=== PATIENT | female | born 1940 | race Caucasian/White ===

== ENCOUNTER → 2018-01-31 01:21 | Outpatient (CLI) | payer MEDICARE, BC, SELFPAY ==
--- NOTE | 2018-01-31 14:00 | DI.REPORT_ITS ---
SYMPTOMS/DIAGNOSIS: F/U ABNORMAL MAMMO, SMALL AREA OF NODULARITY IN POSTERIOR MEDIAL LEFT BREAST ADDITIONAL VIEWS OF THE LEFT BREAST AND LEFT BREAST ULTRASOUND: Additional views of the left breast fail to show a persistent discrete mass. Breast density C. A left breast ultrasound was performed. The upper outer and lower outer quadrants were evaluated sonographically. No cystic or solid masses are seen sonographically. IMPRESSION: No evidence for malignancy. Yearly mammography is recommended. Category 1. The findings were discussed with the patient on the date of the examination. [facility] ASSESSMENT OF FINDINGS: Negative. Category 1. Patient will receive a letter notifying them of these results. Bi-RADS category C. The breasts are heterogeneously dense, which may obscure small masses.
== END ==
PROVIDERS: PCP Family Medicine; Visit Provider Family Medicine
DX: Z12.31 Encounter for screening mammogram for malignant neoplasm of breast (principal); R92.8 Other abnormal and inconclusive findings on diagnostic imaging of breast
CPT/HCPCS: 76642; 77063; 77067

== ENCOUNTER 2018-10-10 11:41 | Outpatient (REF) | payer MEDICARE, BC, SELFPAY ==
[2018-10-10 19:38] LABS: HCT 38.6 % (36.0-46.0); HGB 12.8 g/dL (12.0-15.5); Mean Corp. HGB Concentration 33.2 g/dL (32.0-36.0); Mean Corpuscular Volume 93.5 fL (80-95); Mean Platelet Volume 11.4 fL (8.0-11.0); Platelet Count 225 x1000/uL (130-400); RBC 4.13 m/cumm (4.00-5.20)
[2018-10-10 20:49] LABS: Ferritin 57 ng/mL (8-388)
== END 2018-10-10 12:01 ==
LOC: NCHCN 11:41
PROVIDERS: PCP Family Medicine; Visit Provider Family Medicine
DX: K62.5 Hemorrhage of anus and rectum (principal)
CPT/HCPCS: 85027; 82728

== ENCOUNTER 2018-10-11 10:39 | Outpatient (REF) | payer MEDICARE, BC, SELFPAY ==
[2018-10-12 12:00] LABS: Campylobacter PCR SEE COMMENTS; Salmonella PCR SEE COMMENTS; Shiga Toxin PCR SEE COMMENTS; Shigella/Enteroinvasive Ecoli SEE COMMENTS
== END 2018-10-11 10:59 ==
LOC: NCHCN 10:39
PROVIDERS: PCP Family Medicine; Visit Provider Family Medicine
DX: K92.1 Melena (principal)
CPT/HCPCS: 87329; 87505; 83630; 87324

== ENCOUNTER → 2018-12-15 10:49 | Outpatient (BNVA) | payer MEDICARE, BC, SELFPAY | PROVIDERS: PCP Family Medicine; Referring Provider Family Medicine; Visit Provider Physical Therapy Assistant | DX: K62.5 Hemorrhage of anus and rectum (principal) | CPT/HCPCS: 99213 ==

== ENCOUNTER 2019-04-17 00:41 | Outpatient (CLI) | payer MEDICARE, BC, SELFPAY ==
--- NOTE | 2019-04-17 10:20 | DI.MAMMO_ITS ---
EXAM: MG MAMMO SCREENING CLINICAL HISTORY: SCREENING Z12.31. TECHNIQUE: Mammograms were interpreted according to the usual protocol including computer analysis w [employer] CAD system, tomosynthesis and C-view imaging. FINDINGS: The breast tissue is heterogeneously radiodense which lowers the sensitivity of the examination. The re is no evidence of a dominant mass. There are no suspicious calcifications. There has been no sign ificant interval change when compared with prior images. IMPRESSION: No evidence of malignancy, category 1, yearly screening mammography is recommended. Breast density, c ategory C. BI-RADS Cat 1 - Negative. Breast Density - Category C - Heterogeneously dense.
== END 2019-04-17 01:01 ==
PROVIDERS: PCP Family Medicine; Visit Provider Family Medicine
DX: Z12.31 Encounter for screening mammogram for malignant neoplasm of breast (principal)
CPT/HCPCS: 77063; 77067

== ENCOUNTER 2019-05-19 09:50 | Outpatient (REF) | payer MEDICARE, BC, SELFPAY ==
[2019-05-19 12:55] LABS: ALT 21 U/L (14-59); AST 21 U/L (15-37); Albumin 4.2 g/dL (3.4-5.0); Alkaline Phosphatase 79 U/L (46-116); Anion Gap 8.6 mmol/L (3-11); BUN 14 mg/dL (7-18); Bilirubin, Total 0.4 mg/dL (0.2-1.0); CO2 29.4 mmol/L (21.0-32.0); CREATININE 0.68 mg/dL (0.55-1.02); Calcium 9.3 mg/dL (8.5-10.1); Chloride 104 mmol/L (98-107); Glucose 87 mg/dL (74-106); Lipase 165 U/L (73-393); Potassium 3.8 mmol/L (3.5-5.1); Sodium 142 mmol/L (136-145); Total Protein 7.3 g/dL (6.4-8.2)
== END 2019-05-19 10:10 ==
LOC: NCHCN 09:50
PROVIDERS: PCP Family Medicine; Visit Provider Family Medicine
DX: R63.4 Abnormal weight loss (principal); K21.9 Gastro-esophageal reflux disease without esophagitis; R10.13 Epigastric pain
CPT/HCPCS: 80053; 83690

== ENCOUNTER 2019-05-24 01:37 | Outpatient (CLI) | payer MEDICARE, BC, SELFPAY ==
[2019-05-24] MEDS: Omnipaque 350 MG/ML 50 ML BTL IJ (08:53)
[2019-05-24] MEDS: Omnipaque 350 MG/ML 100 ML BTL IJ (09:37)
[2019-05-24] MEDS: Normal Saline - Diluent 50 ML VIAL IV (09:38)
--- NOTE | 2019-05-24 09:50 | DI.CT_ITS ---
EXAM: CT ABDOMEN W CLINICAL HISTORY: EPIGASTRIC ABDOMINAL PAIN, R10.13, RECENT WEIGHT LOSS, R63.4 TECHNIQUE: CT examination of the abdomen was performed with bolus infusion 100 cc of Omnipaque 350. COMPARISON: No exams were available for comparison FINDINGS: Images obtained through the lung bases are unremarkable. There appears to be wall thickening of the distal esophagus and wall thickening of the gastric antrum is noted as well, the possibility of esop hagitis and gastritis is raised. Other etiologies including neoplastic process not excluded on the b asis of this examination. No gross ulceration seen. Duodenum and proximal jejunum are unremarkable in appearance. Liver, spleen and pancreas appear norm al. Gallbladder and bile ducts are CT normal. Adrenals appear normal bilaterally. There is a left renal cyst measuring about 3.8 cm in diameter and a smaller left renal cyst and right renal cyst are also noted. No evidence of hydronephrosis or nephrolithiasis. Abdominal aorta is of normal diameter and no major vascular abnormality is seen. No abdominal wall hernia seen. IMPRESSION: Wall thickening of distal esophagus and gastric antrum, findings are suggestive of esophagitis and ga stritis. Neoplastic process not excluded. Correlation with endoscopy recommended.
== END 2019-05-24 01:57 ==
PROVIDERS: PCP Family Medicine; Visit Provider Family Medicine
DX: R10.13 Epigastric pain (principal); R63.4 Abnormal weight loss; K20.9 Esophagitis, unspecified; K29.70 Gastritis, unspecified, without bleeding
CPT/HCPCS: 74160; J3490; Q9967

== ENCOUNTER → 2019-06-02 10:24 | Outpatient (BNVA) | payer MEDICARE, BC, SELFPAY | PROVIDERS: PCP Family Medicine; Referring Provider Family Medicine; Visit Provider Surgery | DX: R69 Illness, unspecified (principal) ==

== ENCOUNTER 2019-06-02 11:47 | Outpatient (CLI) | payer MEDICARE, BC, SELFPAY ==
--- NOTE | 2019-06-02 11:38 | DI.RAD_ITS ---
EXAM: XR CHEST 2V PA LATERAL INDICATION: SOB, OTHER CHEST PAIN, R07.89. COMPARISON: CT ABDOMEN W from 05/24/2019 TECHNIQUE: 2D digital imaging was performed. FINDINGS: Heart size is within normal limits. There tortuosity of the thoracic aorta. There are several calci fied granuloma noted. The lungs are otherwise clear. No pleural effusions or pneumothoraces are judie ntified. The lungs appear hyperinflated. Age-appropriate degenerative changes are seen in the spine . IMPRESSION: No acute pulmonary process.
[2019-06-02 12:38] LABS: Abs Immature Grans 0.01 k/cumm (0.0-0.09); Absolute Basophil Count 0.03 k/cumm (0.0-0.2); Absolute Eosinophil Count 0.23 k/cumm (0.0-0.7); Absolute Lymphocyte Count 1.71 k/cumm (1.2-3.4); Absolute Monocyte Count 0.52 k/cumm (0.11-0.7); Absolute Neutrophil Count 4.65 k/cumm (1.2-6.7); Basophils % 0.4; Eosinophils % 3.2; HGB 13.3 g/dL (12.0-15.5); Immature Grans % 0.1; Lymphocytes % 23.9; Mean Corp. HGB Concentration 33.3 g/dL (32.0-36.0); Mean Corpuscular Hemoglobin 30.9 pg (27.0-33.0); Mean Platelet Volume 10.2 fL (8.0-11.0); Monocytes % 7.3; Neutrophils % 65.1; Platelet Count 255 x1000/uL (130-400); RBC Distribution Width 12.3 % (11.7-14.6); White Blood Cell Count 7.15 k/cumm (4.4-10.8)
== END 2019-06-02 12:07 ==
PROVIDERS: PCP Family Medicine; Visit Provider Surgery
DX: R07.89 Other chest pain (principal); R06.02 Shortness of breath; J84.10 Pulmonary fibrosis, unspecified; R10.11 Right upper quadrant pain; K21.9 Gastro-esophageal reflux disease without esophagitis; K60.1 Chronic anal fissure
CPT/HCPCS: 36415; 99213; 71046; 85025

== ENCOUNTER 2019-06-05 09:36 | Day surgery (SDC) | payer MEDICARE, BC, SELFPAY ==
[2019-06-05 09:59] VITALS: BP 126/73; PULSE 74; RESP 16; TEMP 36.7; O2SAT 97
[2019-06-05] MEDS: Lactated Ringers 1,000 ML 80 ML IV (11:10)
--- NOTE | 2019-06-05 11:46 | STOM_PTH ---
PATIENT: Lorenzo Dolan LOC: [facility] U#:[id number] AGE/SX: 79/F ROOM: RE06/05/[address]: Lesia Bryant : 1940 BED: DIS: 06/05/2019 SPEC #: [id number] RECD: 06/05/19 13:09 STATUS: [facility] #: [id number] EFRAÍN: 06/05/19 11:[address]: Lesia Bryant DEPT: Surgical Specimen RECD BY: Jovana Sosa ENTERED: 06/05/19 13:11 SP TYPE: STOMACH OTHR DR: Kristie Thomas Tissues: 1 - BIOPSY BOWEL 2 - STOMACH BIOPSY 3 - STOMACH BIOPSY 4 - ESOPHAGUS BIOPSY 5 - ESOPHAGUS BIOPSY Procedures: GROSS AND MICRO LEVEL 4 Comments: [id number]
--- NOTE | 2019-06-05 12:00 | W.PM.DSUDISC ---
Discharge Plan Disposition Patient Disposition: HOME Condition: Good Discharge Details Reason For Visit: GERD Attending Provider: Lesia Ham Primary Care Provider: Kristie Thomas Home Meds and New Rx's Prescriptions: New sucralfate 1 gram tablet 1 gm PO QACHS Qty: 100 RF: 12 Continued albuterol sulfate [ProAir HFA] 8.5 GM HFA aerosol inhaler 1 puff Inhalation Q6H PRN RF: 0 Flovent Diskus 50 mcg/actuation blister with device 50 mcg Inhalation BID PRNRF: 0 pantoprazole 40 mg tablet,delayed release (DR/EC) 40 mg PO DAILY RF: 0 multivitamin 1 EACH capsule 1 ea PO DAILY RF: 0 Discharge Instructions Instructions: Gastroesophageal Reflux Disease (GEN) Additional Instructions: Findings: gastritis. This is a pre-ulcer condition Continue with lifestyle modifications: no alcohol, tobacco products, Aspirin or NSAID's (ibuprofen, Motrin, Naprosyn, aleve, etc). Try to avoid: soda pop/any carbonated beverages, caffeine (including tea & chocolate), and acidic foods, (tomatoes, citrus, onions, peppermints) spicy or fried/fatty foods. Do not lie down for 30 minutes after eating, and do not eat 2 hours prior to bedtime. Avoid wearing tight fitting clothing/ belts continue on Pantoprazole/protonix added carafate. Follow up: 2-3 wks w/ Dr. ham Please call if you develop: fevers >101.5 Nausea or Vomiting Abdominal pain that is not transient DAY SURGERY UNIT POST COLONOSCOPY INSTRUCTIONS 1. Because there will be medication in your system for the next 24 hours, you may feel a little sleepy. Your coordination will be affected. Therefore: a. Do not drive or operate dangerous equipment for 24 hours. b. Do not drink alcohol beverages for 24 hours (not even beer). c. Plan to go home and rest for the day. 2. Generally there are no restrictions on your activity after a day or so has gone by, but you may feel a bit fatigued for a few days. 3 After you arrive home you may have a light meal and return to a normal diet as you can tolerate it without feeling sick to your stomach. 4. After surgery, you may feel pain or discomfort. This should be only transient, but if it persists please contact your doctor. 5. If there are any questions regarding the findings of your procedure, please feel free to contact your doctor. 6. If you are unable to contact your doctor with a problem, contact the hospital at [phone]. 7. Continue all your regular medications unless directed otherwise. I understand the above instructions and have no questions. Signature of Patient or Responsible Adult Escort Date/Time Name of Responsible Adult Escort Signature of Nurse Date/Time Activity:: no strenuous activity or heavy lifting x24 hours Diet:: Small light meals x24 hours Discharge Orders Discharge Orders: Discharge Order (Routine); Ordered 06/05/19 Ordered By: Lesia Ham DS: Diagnosis Discharge Diagnosis (1) Chronic GERD: Status: Chronic (2) Gastritis: Status: Acute
[2019-06-05 12:30] VITALS: BP 114/76; PULSE 67; RESP 16; TEMP 36.6; O2SAT 97
--- NOTE | 2019-06-19 15:44 | ENDO_ITS ---
Date of service: 06/05/19 Time of Service: 10:00 Endoscopy Report DATE OF PROCEDURE: 06/19/19 PRE-OP DIAGNOSIS: dysphagia/wt loss / hx of gerd POST-OP DIAGNOSIS: other (esophagitis /gastritis) PROCEDURE: egd and bx SURGEON: Lesia Bryant ANESTHESIA: GETA ESTIMATED BLOOD LOSS: 1 PATHOLOGY: other COMPLICATIONS: None DISPOSITION: same day PROCEDURE DESCRIPTION: After informed consent was obtained the patient was take to the procedure room and placed in a supine position. Monitors were applied and a time out was done. The patients name, date of , procedure type, allergies to medications and metal in their body was reviewed. A bite block was placed and the patient was sedated. Once sedated and comfortable the gastroscope was advanced through the oropharynx which was grossly normal into the esophagus. The proximal and mid-esophagus were nl. In the distal esophagus there was erthyma. noted. There were no esophageal diverticula varices or hiatal hernia. There are some changes that could be consistent with this. Multiple biopsies were taken. The scope was advanced into the stomach and through the pylorus into the 3rd portion of the duodenum. The duodenum was noted to be nl. Biopsies were done. All specimens are retrieved and no bleeding is noted. The scope was retracted back into the stomach and biopsies were done to rule out H. pylori. There were ulcers. The scope was retroflexed. The cardia and fundus were noted to be normal. There [] a hiatal hernia noted. The scope was retracted back into the esophagus and biopsies were done of the GE junction to rule out Zuñiga's. The Z line was regular. The GE junction was at 38cm. The scope was removed and the patient was woken up and taken back to [facility] in stable condition.
== END 2019-06-05 13:10 | disposition home or self-care (01) ==
PROVIDERS: PCP Family Medicine; Visit Provider Surgery
PROC: 0DJ68ZZ Inspection of Stomach, Via Natural or Artificial Opening Endoscopic (ICD-10-PCS; CPT 43235; principal; 2019-06-05 10:30)
DX: R13.10 Dysphagia, unspecified (principal); R63.4 Abnormal weight loss; K29.60 Other gastritis without bleeding; K21.0 Gastro-esophageal reflux disease with esophagitis
CPT/HCPCS: 43239; 88305

== ENCOUNTER → 2019-06-30 09:28 | Outpatient (BNVA) | payer MEDICARE, BC, SELFPAY | PROVIDERS: PCP Family Medicine; Referring Provider Family Medicine; Visit Provider Surgery | DX: K21.0 Gastro-esophageal reflux disease with esophagitis (principal); Z98.890 Other specified postprocedural states | CPT/HCPCS: 99213 ==

== ENCOUNTER 2019-07-14 02:07 | Outpatient (CLI) | payer MEDICARE, BC, SELFPAY ==
--- NOTE | 2019-07-14 13:25 | DI.NM_ITS ---
EXAM: NM HEPATOBILIARY CCK GRP CLINICAL HISTORY: RUQ PAIN RADIATES TO BACK R10.11 . COMPARISON: No exams were available for comparison EXAMINATION: 4.8 millicuries of technetium 99 mm mebrofenin were administered IV. FINDINGS: There is normal hepatic uptake. The gallbladder is promptly visualized. 0.7 micrograms of CCK were infused via IV drip over 45 minutes. The gallbladder ejection fraction is 51 percent, which is withi n the normal range (normal range is greater than 40 percent). Reflux was seen into the stomach durin g the CCK infusion. IMPRESSION: Gallbladder ejection fraction is within the normal range of 51 percent. Duodenal gastric reflux was seen during CCK infusion.
== END 2019-07-14 02:27 ==
PROVIDERS: PCP Family Medicine; Visit Provider Surgery
DX: R10.11 Right upper quadrant pain (principal); K21.9 Gastro-esophageal reflux disease without esophagitis
CPT/HCPCS: 78227

== ENCOUNTER → 2019-07-21 12:20 | Outpatient (BNVA) | payer MEDICARE, BC, SELFPAY | PROVIDERS: PCP Family Medicine; Referring Provider Family Medicine; Visit Provider Surgery | DX: K21.0 Gastro-esophageal reflux disease with esophagitis (principal); Z48.815 Encounter for surgical aftercare following surgery on the digestive system | CPT/HCPCS: 99212 ==

== ENCOUNTER → 2020-01-11 10:48 | Outpatient (BNVA) | payer MEDICARE, BC, SELFPAY | PROVIDERS: PCP Family Medicine; Referring Provider Family Medicine; Visit Provider Physical Therapy Assistant | DX: R63.4 Abnormal weight loss (principal) | CPT/HCPCS: 99213 ==

== ENCOUNTER → 2020-01-25 11:24 | Outpatient (BNVA) | payer MEDICARE, BC, SELFPAY | PROVIDERS: PCP Family Medicine; Referring Provider Family Medicine; Visit Provider Physical Therapy Assistant | DX: R63.4 Abnormal weight loss (principal) | CPT/HCPCS: 99212; 99213 ==

== ENCOUNTER 2020-05-03 15:35 | Outpatient (REF) | payer MEDICARE, BC, SELFPAY ==
[2020-05-03 19:51] LABS: HCT 38.6 % (36.0-46.0); MCH 31.4 pg (27.0-33.0); MCHC 33.7 % (32.0-36.0); MCV 93.2 fL (80-95); MPV 11.4 fL (8.0-11.0); Platelet Count 237 10^3/uL (130-400); RBC 4.14 10^6/uL (3.93-5.22); RDW 11.9 % (11.7-14.6); RDW-SD 41.1 fL; WBC 8.38 10^3/uL (4.4-10.8)
[2020-05-03 20:32] LABS: ALT 20 U/L (14-59); AST 24 U/L (15-37); Albumin 4.2 g/dL (3.4-5.0); Alkaline Phosphatase 72 U/L (46-116); Anion Gap 4.5 mmol/L (3-11); BUN 19 mg/dL (7-18); Bilirubin, Total 0.4 mg/dL (0.2-1.0); CO2 29.5 mmol/L (21.0-32.0); CREATININE 0.68 mg/dL (0.55-1.02); Calcium 9.1 mg/dL (8.5-10.1); Chloride 109 mmol/L (98-107); Glucose 95 mg/dL (74-106); Potassium 4.5 mmol/L (3.5-5.1); Sodium 143 mmol/L (136-145); TSH (W/Ref FT4) 4.23 uIU/mL (0.36-3.74); Total Protein 7.2 g/dL (6.4-8.2); Vitamin B12 789 pg/mL (193-986)
[2020-05-03 20:34] LABS: Folate > 20.0 ng/mL (8.6-20.0)
[2020-05-03 20:51] LABS: FREE T4 0.86 ng/dL (0.76-1.46)
[2020-05-06 06:10] LABS: Vitamin D 25 Total 24.6 ng/ml (30-100)
== END 2020-05-03 15:55 ==
LOC: NCHCN 15:35
PROVIDERS: PCP Family Medicine; Visit Provider Family Medicine
DX: R10.13 Epigastric pain (principal); R63.4 Abnormal weight loss
CPT/HCPCS: 80053; 82306; 85027; 82607; 82746; 84439; 84443

== ENCOUNTER 2020-05-30 01:20 | Outpatient (CLI) | payer MEDICARE, BC, SELFPAY ==
--- NOTE | 2020-05-30 | DI.MAMMO_ITS ---
EXAM: MG MAMMO SCREENING CLINICAL HISTORY: SCREENING,Z12.31. TECHNIQUE: Bilateral full field digital CC and MLO mammographic images were obtained with 3D tomosyn thesis and utilizing computer aided detection (CAD). COMPARISON: Prior mammograms dating back to 2010, the most recent being March 2019. Breast ultras ound January 2018 was reviewed FINDINGS: Fibroglandular tissue is moderately dense and somewhat nodular. There are no new spiculated masses nor malignant appearing microcalcification groups. There is no ne w architectural distortion nor skin thickening-retraction. IMPRESSION: Moderately dense fibroglandular tissue. No obvious radiographic evidence of malignancy. BI-RADS Category 2 - Benign Findings Breast Density - Category C - Heterogeneously dense Breast density Category C or D implies that the patient has dense breast tissue. Dense breast tissue can make it harder to find cancer on a mammogram. Dense breast tissue is also associated with an incr eased risk of breast cancer. This information about the result of the mammogram report was provided to the patient to raise their awareness. Use this report when you speak with the patient about their risks for breast cancer, which includes their family history. At that time, you may recommend additional screening tests (Ultrasoun d or MRI) as these tests may add significant information. A negative radiographic report should not delay biopsy if a dominant or clinically suspicious mass is present. Up to ten percent of cancers are not identified on mammography. A negative report may reinforce clinical impression. Adenosis and dense breasts may obscure an underlying neoplasm. False positive reports average 6 to 10%. Patient will receive a letter notifying them of these results.
== END 2020-05-30 01:40 ==
PROVIDERS: PCP Family Medicine; Visit Provider Family Medicine
DX: Z12.31 Encounter for screening mammogram for malignant neoplasm of breast (principal)
CPT/HCPCS: 77063; 77067

== ENCOUNTER 2020-08-15 02:38 | Outpatient (CLI) | payer MEDICARE, BC, SELFPAY ==
[2020-08-16 15:33] LABS: COVID-19 RT-PCR UVMMC Result Negative (Negative)
== END 2020-08-15 02:39 | disposition home or self-care (01) ==
LOC: LBO 02:38
PROVIDERS: PCP Family Medicine; Visit Provider Family Medicine
DX: Z20.822 Contact with and (suspected) exposure to COVID-19 (principal); Z01.818 Encounter for other preprocedural examination
CPT/HCPCS: U0003; U0005

== ENCOUNTER 2020-08-19 01:11 | Outpatient (CLI) | payer MEDICARE, BC, SELFPAY ==
--- NOTE | 2020-08-19 08:45 | DI.NM_ITS ---
APPROVED REPORT Exam: Exercise Treadmill Patient Location: Out-Patient Room/Bed: Stress Nurse: Daylin Alvarez RN Ordering Provider:TITO VYAS, Contact Number: [phone] BMI: 19.45 Baseline Rhythm: Sinus Rhythm Indications: Chest pain occuring at rest with nausea, radiating to neck and arm. Medical History Medical History: GERD, Gastritis, Osteoarthritis. Cardiac Medications: Pantoprazole, Carafate. Allergies: No known drug allergies Cardiac Risk Factors: Asthma Previous Cardiac Procedures: None. Pretest Chest Pain Characteristics: None. Exercise History: Sedentary Physical Disabilities: Arthritis causing foot/knee pain. Lung Sounds: Clear to auscultation Heart Sounds: Regular Stress Test Details Test: Exercise stress testing was performed using a Aristides protocol. Nuclear Acquisition: Rest Tc-99m/Stress Tc-99m 1 day Rest Isotope: Tc-99m Sestamibi. Dose: 11.5 Date: 08/19/2020 Injection Time: 0915 Stress Isotope: Tc-99m Sestamibi. Dose: 37.0 Date: 08/19/2020 Injection Time: 1022 HR Resting HR Supine: 71 bpm Max Heart Rate (APMHR): 142 bpm Resting HR Standin bpm Target HR (85% APMHR): 120 bpm Max HR Achieved: 158 bpm % of APMHR: 111 Recovery HR: 86 bpm HR response to stress: Normal HR response to stress BP Resting BP Supine: 140/84 mmHg Resting BP Standin/82 mmHg Max BP: 164/106 mmHg Recovery BP: 148/100 mmHg BP response to stress: Normal blood pressure response to stress. ECG Resting ECG: Sinus Rhythm Ectopy: None. Stress ECG: Sinus Tachycardia ST Change: No significant ST segment changes noted Arrhythmia: PVCs, PVC couplets. Recovery ECG: Sinus Rhythm Recovery ST Change: No significant ST segment changes noted Recovery Arrhythmia: PACS, PVCS Clinical Reason for Termination: Fatigue Stress Symptoms: Dyspnea, General Fatigue Exercise duration: 3 min0 sec Highest Stage Reached: Stage 1: 1.7 mph at 10% grade. Exercise capacity: 4.64 METs Elizabeth Treadmill Score: 3 Rate Pressure Product: [id number] Stress ECG Conclusion 1. The patient exercised for 3 minutes (5 METS). Stress test was stopped due to fatigue. 2. The patient had no symptoms suggestive of ischemia. 3. There were occasional PVCs but no changes suggestive of ischemia. Elizabeth Treadmill Score is 3 which is Moderate risk. Stress Test Summary STAGE Time (mins) Speed (mph) Grade (%) HR BP SYMPTOMS METS Supine 71 140/84 Standing 71 138/82 SpO2 98% 1 3 1.7 10 149 4.6 1 min recovery 129 164/106 SpO2 96% 3 min recovery 98 160/102 6 min recovery 86 148/100 MPI Conclusion The ejection fraction was 58% with stress. There were no wall motion abnormalities. There was no evidence of ischemia on the imaging portion exam. This represents a normal SPECT stress test.
== END 2020-08-19 01:12 ==
LOC: DI 01:12
PROVIDERS: PCP Family Medicine; Visit Provider Family Medicine
DX: R07.9 Chest pain, unspecified (principal); K21.9 Gastro-esophageal reflux disease without esophagitis
CPT/HCPCS: 78452; 93016; 93018; 93017

== ENCOUNTER 2021-05-15 17:40 | Outpatient (REF) | payer MEDICARE, BC, SELFPAY ==
[2021-05-15 17:34] LABS: Anion Gap 9.6 mmol/L (3-11); BUN 14 mg/dL (7-18); CO2 29.4 mmol/L (21.0-32.0); CREATININE 0.6 mg/dL (0.55-1.02); Calcium 9.3 mg/dL (8.5-10.1); Chloride 106 mmol/L (98-107); Glucose 80 mg/dL (74-106); Potassium 3.7 mmol/L (3.5-5.1); Sodium 145 mmol/L (136-145)
[2021-05-15 17:52] LABS: Vitamin D 25 Total 34.7 ng/mL (30-100)
[2021-05-15 18:15] LABS: FREE T4 0.84 ng/dL (0.76-1.46)
== END 2021-05-15 17:41 | disposition home or self-care (01) ==
LOC: NCHCN 17:40
PROVIDERS: PCP Family Medicine; Visit Provider Family Medicine
DX: E03.9 Hypothyroidism, unspecified (principal); E55.9 Vitamin D deficiency, unspecified; M81.0 Age-related osteoporosis without current pathological fracture; R63.4 Abnormal weight loss
CPT/HCPCS: 80048; 82306; 84439; 84443

== ENCOUNTER 2021-10-16 02:54 | Outpatient (CLI) | payer MEDICARE, BC, SELFPAY ==
[2021-10-16] MEDS: Albuterol HFA 18 GM 200 PUFF INH IH (11:11)
[2021-10-16] MEDS: Inhaler, Assist Device 1 EACH MC (11:12)
== END 2021-10-16 02:55 | disposition home or self-care (01) ==
LOC: RT 02:54
PROVIDERS: PCP Family Medicine; Visit Provider Family Medicine
DX: J45.30 Mild persistent asthma, uncomplicated (principal); R05.8 Other specified cough; Z87.891 Personal history of nicotine dependence
CPT/HCPCS: 94060; 94726; 94729

== ENCOUNTER 2021-10-24 01:02 | Outpatient (CLI) | payer MEDICARE, BC, SELFPAY ==
--- NOTE | 2021-10-24 13:30 | DI.MAMMO_ITS ---
Exam(s) MAMMO DIAGNOSTIC BI EXAM: MAMMO DIAGNOSTIC BI CLINICAL HISTORY: DIAGNOSTIC, LT NIPPLE DISCHARGE, N64.52 TECHNIQUE: Mammograms were interpreted according to the usual protocol including computer analysis w [employer] CAD system, tomosynthesis and C-view imaging. COMPARISON: 2011 through 2019 FINDINGS: The breasts are composed of heterogeneously dense fibroglandular densities, Breast Density category C . No suspicious masses or suspicious microcalcifications are seen. No skin thickening or abnormal axillary lymph nodes are seen. There has been no significant change from prior exams. IMPRESSION: Negative mammogram. BI-RADS Cat 0 - Assessment Incomplete: additional imaging evaluation with ultrasound is recommended d ue to history of left nipple discharge and tenderness. Breast Density Category C, heterogeneously Dense. A negative radiographic report should not delay biopsy if a dominant or clinically suspicious mass is present. Up to ten percent of cancers are not identified on mammography. A negative report may reinforce clinical impression. Adenosis and dense breasts may obscure an underlying neoplasm. False positive reports average 6 to 10%.
== END 2021-10-24 01:22 ==
PROVIDERS: PCP Family Medicine; Visit Provider Family Medicine
DX: N64.52 Nipple discharge (principal); R92.2 Inconclusive mammogram; N64.4 Mastodynia
CPT/HCPCS: 77062; 77066; G0279

== ENCOUNTER → 2021-11-03 00:36 | Outpatient (CLI) | payer MEDICARE, BC, SELFPAY ==
--- NOTE | 2021-11-03 | DI.US_ITS ---
Exam(s) US BREAST LT COMPLETE EXAM: US BREAST LT COMPLETE CLINICAL HISTORY: F/U MAMMO, LT NIPPLE DISCHARGE AND TENDERNESS TECHNIQUE: Ultrasound left breast performed using standard protocol. COMPARISON: MG MG MAMMO DIAGNOSTIC BI from 10/24/2021 FINDINGS: No solid or cystic masses, hypoechoic foci, areas of abnormal shadowing, or areas of skin thickening. No dilated ducts. IMPRESSION: No sonographically suspicious finding. BI-RADS Category 1 - Negative DATA REPOSITORY:
== END ==
PROVIDERS: PCP Family Medicine; Visit Provider Family Medicine
DX: R92.8 Other abnormal and inconclusive findings on diagnostic imaging of breast (principal); N64.4 Mastodynia; N64.52 Nipple discharge
CPT/HCPCS: 76642

== ENCOUNTER 2022-01-29 15:31 | Outpatient (REF) | payer MEDICARE, BC, SELFPAY ==
[2022-01-29 15:48] LABS: HCT 37.7 % (36.0-46.0); HGB 12.7 g/dL (11.2-15.7); MCH 31.6 pg (27.0-33.0); MCHC 33.7 % (32.0-36.0); MCV 94 fL (80-95); MPV 11.4 fL (8.0-11.0); Platelet Count 232 10^3/uL (130-400); RBC 4.02 10^6/uL (3.93-5.22); RDW 12.1 % (11.7-14.6); RDW-SD 42.3 fL
[2022-01-29 16:38] LABS: ALT 24 U/L (14-59); AST 28 U/L (15-37); Albumin 3.8 g/dL (3.4-5.0); Alkaline Phosphatase 66 U/L (46-116); Anion Gap 8.3 mmol/L (3-11); BUN 13 mg/dL (7-18); Bilirubin, Total 0.4 mg/dL (0.2-1.0); CO2 28.7 mmol/L (21.0-32.0); CREATININE 0.6 mg/dL (0.55-1.02); Calcium 9.2 mg/dL (8.5-10.1); Chloride 104 mmol/L (98-107); Glucose 75 mg/dL (74-106); Potassium 3.6 mmol/L (3.5-5.1); Sodium 141 mmol/L (136-145); TSH (W/Ref FT4) 4.76 uIU/mL (0.36-3.74); Total Protein 7.1 g/dL (6.4-8.2); Vitamin B12 625 pg/mL (193-986)
[2022-01-29 16:56] LABS: FREE T4 0.84 ng/dL (0.76-1.46)
== END 2022-01-29 15:32 | disposition home or self-care (01) ==
LOC: NCHCN 15:31
PROVIDERS: PCP Family Medicine; Visit Provider Family Medicine
DX: R63.4 Abnormal weight loss (principal); R10.13 Epigastric pain
CPT/HCPCS: 80053; 85027; 82607; 84439; 84443

== ENCOUNTER 2022-07-17 18:42 | Outpatient (REF) | payer MEDICARE, BC, SELFPAY ==
[2022-07-17 19:30] LABS: HCT 37.7 % (36.0-46.0); HGB 12.5 g/dL (11.2-15.7); MCH 30.9 pg (27.0-33.0); MCHC 33.2 % (32.0-36.0); MCV 93 fL (80-95); MPV 11.9 fL (8.0-11.0); Platelet Count 227 10^3/uL (130-400); RBC 4.05 10^6/uL (3.93-5.22); RDW 11.9 % (11.7-14.6); RDW-SD 40.9 fL; WBC 6.56 10^3/uL (4.4-10.8)
[2022-07-17 19:54] LABS: ALT 18 U/L (14-59); AST 28 U/L (15-37); Albumin 4.1 g/dL (3.4-5.0); Alkaline Phosphatase 87 U/L (46-116); Anion Gap 6.9 mmol/L (3-11); BUN 17 mg/dL (7-18); Bilirubin, Total 0.3 mg/dL (0.2-1.0); CO2 29.1 mmol/L (21.0-32.0); CREATININE 0.9 mg/dL (0.55-1.02); Calcium 9.3 mg/dL (8.5-10.1); Chloride 105 mmol/L (98-107); Estimated GFR 64.63 (mL/min/1.73m2); Glucose 110 mg/dL (74-106); Potassium 4.1 mmol/L (3.5-5.1); Sodium 141 mmol/L (136-145); TSH (W/Ref FT4) 4.91 uIU/mL (0.36-3.74); Total Protein 7.5 g/dL (6.4-8.2)
[2022-07-17 20:04] LABS: Vitamin D 25 Total 25.2 ng/mL (30-100)
[2022-07-17 20:10] LABS: FREE T4 0.78 ng/dL (0.76-1.46)
[2022-07-22 12:58] LABS: Albumin 63.1 % (55.8-66.1); Albumin g/dL 4.4 g/dL (3.6-5.2)
== END 2022-07-17 18:43 | disposition home or self-care (01) ==
LOC: NCHCN 18:42
PROVIDERS: PCP Family Medicine; Visit Provider Family Medicine
DX: E03.9 Hypothyroidism, unspecified (principal); E55.9 Vitamin D deficiency, unspecified; M89.8X8 Other specified disorders of bone, other site; R63.6 Underweight
CPT/HCPCS: 80053; 82306; 85027; 84165; 84439; 84443

== ENCOUNTER 2023-03-05 11:53 | Outpatient (REF) | payer MEDICARE, BC, SELFPAY ==
[2023-03-05 18:45] LABS: HCT 37.7 % (36.0-46.0); HGB 12.8 g/dL (11.2-15.7); MCH 31.4 pg (27.0-33.0); MCV 92 fL (80-95); MPV 11.8 fL (8.0-11.0); Platelet Count 218 10^3/uL (130-400); RBC 4.08 10^6/uL (3.93-5.22); RDW-SD 40.5 fL; WBC 5.33 10^3/uL (4.4-10.8)
[2023-03-05 19:16] LABS: ALT 23 U/L (14-59); AST 28 U/L (15-37); Alkaline Phosphatase 98 U/L (46-116); Anion Gap 9.2 mmol/L (3-11); BUN 18 mg/dL (7-18); Bilirubin, Total 0.4 mg/dL (0.2-1.0); CO2 26.8 mmol/L (21.0-32.0); CREATININE 0.6 mg/dL (0.55-1.02); Calcium 9.4 mg/dL (8.5-10.1); Chloride 104 mmol/L (98-107); Estimated GFR 90.12 (mL/min/1.73m2); Glucose 103 mg/dL (74-106); Potassium 4.2 mmol/L (3.5-5.1); Sodium 140 mmol/L (136-145); TSH (W/Ref FT4) 4.33 uIU/mL (0.36-3.74); Total Protein 7.1 g/dL (6.4-8.2)
[2023-03-05 19:32] LABS: FREE T4 0.74 ng/dL (0.76-1.46)
== END 2023-03-05 11:54 | disposition home or self-care (01) ==
LOC: NCHCN 11:53
PROVIDERS: PCP Family Medicine; Visit Provider Family Medicine
DX: R63.4 Abnormal weight loss (principal); Z51.81 Encounter for therapeutic drug level monitoring; Z79.899 Other long term (current) drug therapy
CPT/HCPCS: 80053; 85027; 80156; 84439; 84443

== ENCOUNTER → 2023-03-19 01:00 | Outpatient (CLI) | payer MEDICARE, BC, SELFPAY ==
--- NOTE | 2023-03-19 08:26 | DI.MAMMO_ITS ---
Exam(s) MAMMO SCREENING EXAM: MAMMO SCREENING CLINICAL HISTORY: SCREENING MAMMO FOR BREAST CANCER Z12.31. TECHNIQUE: Bilateral full field digital CC and MLO mammographic images were obtained with 3D tomosyn thesis and utilizing computer aided detection (CAD). COMPARISON: 2012 through 2021 FINDINGS: Masses/Architectural Distortion: None seen. Microcalcifications: No suspicious pleomorphic-type are seen. Skin Thickening/Nipple Retraction: None. There has been some interval increase in breast density from the prior exam which could be secondary to weight loss. IMPRESSION: 1. No significant interval change with no specific features of malignancy noted. 2. Unless there is more urgent need, annual screening mammography is recommended, as per [place] [employer] guidelines. BI-RADS Category 1-negative Breast Density - Category D - extremely dense Breast Density Category D: The mammogram demonstrates the patient's breast tissue is dense. Dense nadine ast tissue is very common and is not abnormal but dense breast tissue can make it harder to find canc er on a mammogram. Also, dense breast tissue may increase their breast cancer risk. This information about the result of the mammogram report was provided to the patient to raise their awareness. Use th is report when you speak with the patient about their risks for breast cancer, which includes their f amily history. At that time, you may recommend for more screening tests (Ultrasound or MRI) as they m ight be useful based on their risk. A negative radiographic report should not delay biopsy if a dominant or clinically suspicious mass is present. Up to ten percent of cancers are not identified on mammography. A negative report may reinforce clinical impression. Adenosis and dense breasts may obscure an underlying neoplasm. False positive reports average 6 to 10%.
[2023-03-19] MEDS: Normal Saline - Diluent 50 ML VIAL IJ (08:44)
[2023-03-19] MEDS: Omnipaque 350 MG/ML 100 ML BTL IJ (08:44)
--- NOTE | 2023-03-19 08:50 | DI.CT_ITS ---
Exam(s) CT CHEST W EXAM: CT CHEST W CLINICAL HISTORY: RECENT WT LOSS, R63.4,FORMER SMOKER, SLIGHT COUGH TECHNIQUE: Imaging Protocol: Axial computed tomography images with coronal and sagittal reformatted images were created and reviewed CONTRAST MATERIAL: Intravenous: Omnipaque 350contrast volume:70 mL. COMPARISON: CT CT ABDOMEN W from 05/24/2019 CR XR CHEST 2V PA LATERAL from 06/02/2019 FINDINGS: Tracheobronchial tree: Patent where visualized. Pulmonary parenchyma: There is scarring in the lung apices bilaterally. Calcified granulomas are pre sent. No suspicious noncalcified pulmonary nodules. No focal infiltrates are present. No obiee obia solution architect ural distortion. Mediastinum and Amber: No dominant adenopathy or fluid collection. The esophagus is unremarkable. Thyroid gland: Unremarkable. Pleura: No effusion or pneumothorax. Heart: The heart is not dilated. No coronary artery calcifications are seen. No pericardial effusion. Aorta: Thoracic aorta non-dilated. Mild atherosclerosis. No evidence of dissection. Pulmonary arteries: The segmental and subsegmental pulmonary arteries are inadequately opacified for evaluation of pulmonary emboli. No large central pulmonary embolus is identified. Upper abdomen: There is again seen a cyst in the left kidney. No follow-up is recommended. Lymph nodes: Within normal limits. Bones: Within normal limits for the patient's age. Soft tissues: Unremarkable. IMPRESSION: 1. No evidence of a pulmonary mass or thoracic adenopathy. 2. Findings of prior granulomatous disease with multiple calcified pulmonary granulomas. RADIATION DOSE DELIVERED: 263.22mGy.cm Total DLP DATA REPOSITORY: All CT scans at this facility are submitted to the National Radiology Data Registry (NRDR) Dose Index Registry (DIR) with the [employer] (A[employer]). RADIATION OPTIMIZATION: All CT scans at this facility use at least one of these dose optimization te chniques: automated exposure control; mA and/or kV adjustment per patient size (includes targeted exa ms where dose is matched to clinical indication); or iterative reconstruction.
== END ==
PROVIDERS: PCP Family Medicine; Visit Provider Family Medicine
DX: Z12.31 Encounter for screening mammogram for malignant neoplasm of breast (principal); R63.4 Abnormal weight loss; Z87.891 Personal history of nicotine dependence
CPT/HCPCS: 77063; 77067; 71260; J3490

== ENCOUNTER 2023-06-17 09:46 | Outpatient (RCR) | payer MEDICARE, BC, SELFPAY ==
--- NOTE | 2023-06-17 10:00 | HOLTER_ITS ---
APPROVED REPORT Exam Type: HOLTER MONITOR APPLICATION Reason for Test: DIZZINESS Patient Location: O Conclusion 1. The underlying rhythm is sinus with physiologic sinus bradycardia and tachycardia. 2. Several PAC'S, sometime aberrantly conducted. One 15 beat run of SVT at 154 bpm. 3. Few unifocal PVC's. No VTACH. 4. No pauces.
== END 2023-06-27 23:59 | disposition home or self-care (01) ==
LOC: CARDOPNVT 09:46
PROVIDERS: PCP Family Medicine; Visit Provider Family Medicine
DX: R42 Dizziness and giddiness (principal); R00.1 Bradycardia, unspecified
CPT/HCPCS: 93227; 93225; 93226

== ENCOUNTER 2023-11-26 13:27 | Emergency (ER) | payer MEDICARE, BC, SELFPAY ==
[2023-11-26 13:32] VITALS: BP 144/85; PULSE 60; RESP 16; TEMP 36.9; O2SAT 98
[2023-11-26] MEDS: Lidocaine/Epinephri/Tetracaine Topical Gel 3 ML TP (14:04)
--- NOTE | 2023-11-26 14:22 | DI.CT_ITS ---
Exam(s) CT HEAD WO EXAM: CT HEAD WO CLINICAL HISTORY: trauma. TECHNIQUE: Imaging Protocol: Axial computed tomography images with coronal and sagittal reformatted images were created and reviewed COMPARISON: No exams were available for comparison FINDINGS: Ventricles and Extra axial spaces: Normal in size and morphology for the patient's age. Hemorrhage: None. Cerebral parenchyma: No evidence of acute infarct or mass. Minimal white matter changes of small ve ssel disease.. Prominent perivascular space left basal ganglia region. Midline shift: None. Brainstem/Cerebellum: Normal. Calvarium: Normal. Visualized Paranasal sinuses:Clear. Mastoids: Clear. Soft Tissues: Unremarkable. ORBITS: Unremarkable. PITUITARY: Not enlarged. IMPRESSION: No acute intracranial process. RADIATION DOSE DELIVERED: 602.68mGy.cm Total DLP DATA REPOSITORY: All CT scans at this facility are submitted to the National Radiology Data Registry (NRDR) Dose Index Registry (DIR) with the [employer] (ACR). RADIATION OPTIMIZATION: All CT scans at this facility use at least one of these dose optimization te chniques: automated exposure control; mA and/or kV adjustment per patient size (includes targeted exa ms where dose is matched to clinical indication); or iterative reconstruction.
--- NOTE | 2023-11-26 16:41 | ED.GENADUL_ITS ---
Discharge Plan Disposition Patient Disposition: Home Condition: Stable Discharge Details Clinical Impression: Forehead laceration, Fall Primary Care Provider: Kristie Thomas ED Provider: Margot Woods Home Meds and New Rx's Prescriptions: No Action pantoprazole 40 mg tablet,delayed release (DR/EC) 40 mg PO DAILY Qty: 30 12RF albuterol sulfate [ProAir HFA] 8.5 GM HFA aerosol inhaler 1 puff Inhalation Q6H PRN Patient Comments: PT USES NEEDED HAS NOT USED FOR ABOUT 1MONTH fluticasone propionate [Flovent Diskus] 50 mcg/actuation blister with device 50 mcg Inhalation BID PRN multivitamin 1 EACH capsule 1 ea PO DAILY Patient Comments: PT TAKING OCCASIONALLY. NOT SURE LAST DOSE sucralfate 1 gram tablet 1 gm PO QACHS Qty: 100 12RF Discharge Instructions Instructions: Facial Laceration (ED) Additional Instructions: Keep wound clean with soap and water. Pat dry. You have for stitches in place, these will dissolve on their own and do not need to be removed. Bruising will continue to develop. Ice pack will help with this. Can take Motrin or Tylenol as needed for pain. Discharge Data Discharge Date/Time-TO BE ENTERED AT DEPARTURE: 11/26/23 14:57 HPI General Date/Time Provider Initiated Documentation: 11/26/23 13:52 . Limitations to Documentation: no limitations . Information obtained by: patient . HPI Narrative: 83-year-old female without significant past medical history presents after a fall. She reports that she was walking this morning and tripped over a piece of [place]. She stubbed her toe and then fell forward. She hit her head on another piece of [place]. She reports that she had no loss of consciousness or no significant pain in her head or neck, but she did have significant bleeding. EMS was contacted and came and evaluated the patient on scene. Patient elected to bring herself to the hospital. She reports that the bleeding stopped after applying pressure. She reports some mild tenderness in her right knee, but no other injuries during the fall. Related Data Home Medications Medication Instructions Recorded Confirmed ProAir HFA 90 mcg/actuation 1 puff inhalation Q6H PRN 01/21/15 11/26/23 aerosol inhaler (albuterol sulfate) multivitamin 1 ea PO DAILY 03/26/16 11/26/23 Flovent Diskus 50 mcg/actuation 50 mcg inhalation BID PRN 12/15/18 11/26/23 powder for inhalation (fluticasone propionate) sucralfate 1 gram tablet 1 gm PO QACHS #100 tabs 06/05/19 11/26/23 pantoprazole 40 mg tablet,delayed 40 mg PO DAILY #30 tabs 07/21/19 11/26/23 release Previous Rx's Medication Instructions Recorded sucralfate 1 gram tablet 1 gm PO QACHS #100 tabs 06/05/19 pantoprazole 40 mg tablet,delayed 40 mg PO DAILY #30 tabs 07/21/19 release Allergies Allergy/AdvReac Type Severity Reaction Status Date / Time No Known Allergies Allergy Verified 11/26/23 14:01 General Stated Complaint: Laceration SACHA: 4 Exam Narrative Exam Narrative: Review of Systems: All systems reviewed & are unremarkable except as noted in HPI and below Well-developed, no acute distress 1.5 centimeter laceration above left eyebrow, no facial instability, no malocclusion, no active bleeding PERRL, normal conjunctiva RRR Unlabored respiratory effort Nondistended abdomen Extremities w/o deformity, no cyanosis, no edema Right knee with a very small bruise, no effusion, full range of motion and normal gait No rashes or lesions. no focal neurologic deficits Appropriate mood and affect Course Vital Signs Vital signs: Vital Signs Temperature 36.9 C 11/26/23 13:32 Pulse 60 11/26/23 13:32 Respiratory Rate 16 11/26/23 13:32 Blood Pressure 144/85 H 11/26/23 13:32 Pulse Oximetry 98 11/26/23 13:32 Temperature 36.9 C 11/26/23 13:32 Temperature Source Tympanic 11/26/23 13:32 Pulse 60 11/26/23 13:32 Respiratory Rate 16 11/26/23 13:32 Respiratory Effort Normal, Non-Labored 11/26/23 14:02 Blood Pressure 144/85 H 11/26/23 13:32 Blood Pressure Position Sitting 11/26/23 13:32 Pulse Oximetry 98 11/26/23 13:32 Oxygen Delivery Method Room Air 11/26/23 13:32 Oxygen Flow Rate 0 11/26/23 13:32 Pain Level 2 11/26/23 13:32 Procedures Laceration Laceration 1: Site: face Size (cm): 1.5 Description: linear Local Anesthetic: other anesthetic (LET) Pre-repair: wound explored, irrigated extensively and deep structures intact Skin layer closed with: other (Chromic Gut) Size (cm): 5-0 Number of sutures: 4 Technique: simple, interrupted Medical Decision Making Emergent evaluation of acute head trauma. This was a mechanical fall, no preceding symptoms of syncope or other concerns for cardiopulmonary etiology of her fall. No loss of consciousness and the patient is not on blood thinners. Head CT was obtained secondary to her age. I reviewed the head CT independently interpreted, there is no fracture or intracranial process. The laceration was repaired without complication using absorbable suture. The patient was discharged in good condition. Wound care guidance discussed with the patient and signs of infection and cautions to return. Medical Records Medical records reviewed: Yes I reviewed the patient's medical records. Quality:SDOH Health Related Social Needs: No Data to Display PFSH All Active Problems Fall (Acute) Forehead laceration (Acute) GERD with esophagitis (Acute) Gastritis (Acute) Chronic rectal fissure (Acute) Non-cardiac chest pain (Acute) Vaginal disorder (Chronic 01/06/18) Osteoporosis, unspecified (Chronic 01/06/18) Osteoarthritis of both hands (Chronic 01/06/18) Mild persistent asthma (Chronic 01/06/18) Irritable bowel syndrome (Chronic 01/06/18) Chronic GERD (Chronic 01/06/18) Medical History Allergic rhinitis Ganglion cyst of foot Left foot Weight loss Rectocele Rectal bleeding Kristie Thomas - 12/05/18 - intermittent BRBPR for last few months, nl CBC and ferritin, nl colo 04/09/15, no hemorrhoid or fissure on exam. Asthma Hiatal hernia GERD (gastroesophageal reflux disease) Surgical History Open Carpal Tunnel release Abdominal hysterectomy EGD/COLONOSCOPY (04/26/15) DR.TERRY PERRY EGD - IV Sedation (~06/05/19) Colonoscopy - IV Sedation Family History Father No problems noted. Mother Personal history of malignant neoplasm colon cancer Social History Smoking/Tobacco Use Status: Former Tobacco Use Smoking risk assessment performed?: Yes Alcohol Intake: current Alcohol Intake frequency: 0-2 drinks per day Alcohol type: hard liquor Drug use: Never Substance use type: does not use Do you feel safe at home: Yes Do you feel safe in your relationship?: Yes
== END 2023-11-26 14:57 | disposition home or self-care (01) ==
PROVIDERS: Emergency Provider Emergency Medicine; PCP Family Medicine
DX: S01.81XA Laceration without foreign body of other part of head, initial encounter (principal); Z87.891 Personal history of nicotine dependence; W01.0XXA Fall on same level from slipping, tripping and stumbling without subsequent striking against object, initial encounter; Y93.01 Activity, walking, marching and hiking; Y92.017 Garden or yard in single-family (private) house as the place of occurrence of the external cause
CPT/HCPCS: 12011; 99284; 70450

== ENCOUNTER 2024-01-12 12:01 | Outpatient (REF) | payer MEDICARE, BC, SELFPAY ==
[2024-01-12 16:46] LABS: HCT 37.8 % (36.0-46.0); HGB 12.6 g/dL (11.2-15.7); MCH 31.1 pg (27.0-33.0); MCHC 33.3 % (32.0-36.0); MCV 93 fL (80-95); MPV 12.1 fL (8.0-11.0); Platelet Count 197 10^3/uL (130-400); RBC 4.05 10^6/uL (3.93-5.22); RDW 11.9 % (11.7-14.6); RDW-SD 40.8 fL; WBC 5.32 10^3/uL (4.4-10.8)
[2024-01-12 17:42] LABS: ALT 25 U/L (14-59); AST 25 U/L (15-37); Albumin 4.1 g/dL (3.4-5.0); Alkaline Phosphatase 81 U/L (46-116); Anion Gap 7.2 mmol/L (3-11); BUN 12 mg/dL (7-18); Bilirubin, Total 0.48 mg/dL (0.2-1.0); CO2 29.8 mmol/L (21.0-32.0); CREATININE 0.6 mg/dL (0.55-1.02); Calcium 9.2 mg/dL (8.5-10.1); Chloride 104 mmol/L (98-107); Estimated GFR 90.12 (mL/min/1.73m2); Glucose 107 mg/dL (74-106); Potassium 4.3 mmol/L (3.5-5.1); Sodium 141 mmol/L (136-145); TSH (W/Ref FT4) 4.05 uIU/mL (0.36-3.74); Total Protein 6.9 g/dL (6.4-8.2)
[2024-01-12 19:24] LABS: FREE T4 0.93 ng/dL (0.76-1.46)
== END 2024-01-12 12:02 | disposition home or self-care (01) ==
LOC: NCHCN 12:01
PROVIDERS: PCP Family Medicine; Visit Provider Family Medicine
DX: R63.4 Abnormal weight loss (principal)
CPT/HCPCS: 80053; 85027; 84439; 84443

== ENCOUNTER 2024-06-20 03:11 | Outpatient (CLI) | payer MEDICARE, BC, SELFPAY ==
--- NOTE | 2024-06-20 12:30 | DI.US_ITS ---
APPROVED REPORT EXAM: Comprehensive 2D, Doppler, and color-flow Echocardiogram Patient Location: Out-Patient Loan Processor: Lorenzo Esteves RDCS (AE) Indications: ZURITA Conclusion Normal left ventricular wall thickness and chamber size. Ejection fraction is 60%. Wall motion is n ormal Normal right ventricular size and function Both atria are moderately enlarged Aortic valve is sclerotic and trileaflet with trace regurgitation Mild mitral regurgitation Moderate tricuspid regurgitation. Estimated right ventricular systolic pressure is 29 mmHg Wall motion Left Ventricle The left ventricle is normal size. The left ventricular systolic function is normal. The left ventric ular ejection fraction is within the normal range. There is normal left ventricular wall thickness. T here is normal LV segmental wall motion. There is no ventricular septal defect visualized. LVEF is 60 %. Right Ventricle The right ventricle is normal size. The right ventricular systolic function is normal. Atria Left atrium is moderately dilated. Right atrium is moderately dilated. The interatrial septum is int act with no evidence for an atrial septal defect. Aortic Valve The Aortic valve is sclerotic. Aortic valve is trileaflet. There is no aortic valvular stenosis. Trac e aortic regurgitation. Mitral Valve The mitral valve is normal in structure. No evidence of mitral valve stenosis. Mild mitral regurgitat ion. Tricuspid Valve The tricuspid valve is normal in structure. There is no tricuspid valve stenosis. Moderate tricuspid regurgitation. The RVSP is 27.8 mmHg. Pulmonic Valve The pulmonary valve is normal in structure. There is no pulmonic valvular stenosis. Mild pulmonic reg urgitation. Great Vessels The aortic root is normal in size. The ascending aorta is normal in size. Aortic arch is not well vis ualized. IVC is normal in size and collapses >50% with inspiration. Pericardium There is no pericardial effusion. 2D Dimensions IVSD d PLAX 0.63 cm F: 0.6-1.0 Ao Root d 2.50 cm F: 2.7 - 3.3 LVPW d PLAX 0.64 cm F: 0.6 - 1.0 Ao Asc Diam d 2.49 cm F: 2.3 - 3.1 LVID d PLAX 4.50 cm F: 3.8 - 5.2 LVDs 3.08 cm F: 2.2 - 3.5 LV EF Teichholz 59.7 % FS 31.60 % LV EDV (Teich) 92.3 mL LV ESV (Teich) 37.2 mL Stroke Vol Index (Teich) 41.43 M-Mode TAPSE 1.65 cm (M/F) >1.7 Auto EF LV EDV A4C 57.4 mL LV EDV A2C 66.6 mL LV EDV BP 63.7 mL LV ESV A4C 24.4 mL LV ESV A2C 26.7 mL LV ESV BP 25.2 mL LVEF(%) A4C 57.5 % LVEF(%) A2C 59.9 % LVEF(%) BP 60.5 % LV SV A4C 33.0 ml LV SV A2C 39.9 ml LV SV BP 38.5 ml LV CO A4C 2.1 L/min LV CO A2C 2.5 L/min LV CO BP 2.3 L/min HR A4C 64.40 BPM HR A2C 63.49 BPM LV EDV Index (BP) LA Volume LA Length A4C 2.6 cm LA Length A2C 2.8 cm LA Area A4C s 7.32 cm2 LA Area A2C s 7.42 cm2 LA Vol A4C A-L 17.76 mL LA Vol A2C A-L 16.49 mL LA Vol Biplane A-L 18.0 mL LA Vol/BSA A4C A-L LA Vol/BSA A2C A-L LA Vol/BSA BP A-L 13.5 mL/m2 LA Vol A4C MOD 15.6 mL LA Vol A2C MOD 14.4 mL LA Vol BP MOD 15.7 mL RA Volume RA Area A4C 8.0 cm2 RA ESV A4C (A-L) 24.5mL RA Vol/BSA A4C A-L RA Length A4C 2.2 cm RA ESV A4C (MOD) 22.7mL LV Diastology MV E' medial 0.053 (>0.07 m/s) MV E Vmax 0.60 (0.4-1.3 m/s) MV E/E' MED 11.26 (<14) MV A Vmax 0.55 (0.4-1.3 m/s) MV E' lateral 0.055 (>0.1 m/s) E/A Ratio 1.1 MV E/E' LAT 10.82 (<14) MV E' Average 0.054 m/s MV E/E'(average) 11.04 Aortic Valve AoV Vmax 1.05 m/s LVOT Vmax 0.88 m/s AoV Peak Grad 4.4 mmHg LVOT Peak Grad 3.1 mmHg AoV Area (Vmax) 1.73 cm2 LVOT VTI 0.180 m AoV VTI 0.228 m LVOT Mean Grad 1.7 mmHg AoV Mean Torsten. 0.72 m/s LVOT SV 37.10 mL AoV Mean Grad 2.4 mmHg LVOT Diam s 1.60 cm AoV Area (VTI) 1.63 cm2 AV Regurg Peak Gr. 4.43 mmHg Velocity Ratio 0.84 Mitral Valve MV DT 132 (160-240 msec) Pulmonary Valve PV Vmax 0.63 (0.5-1.5 m/s) RVOT Vmax 0.51 m/s PV Peak Grad 1.6 mmHg RVOT Peak Gr. 1.0 mmHg PV Mean Torsten 0.42 m/s RVOT VTI 0.115 m PV Mean Grad 0.8 mmHg RVOT Mean Gr. 0.5 mmHg Tricuspid Valve RA Pressure 3.00 mmHg TR Vmax 2.49 m/s TR Peak Grad 24.8 mmHg RVSP (TR) 27.8 mmHg
--- NOTE | 2024-06-20 12:35 | DI.MAMMO_ITS ---
Exam(s) MAMMO SCREENING EXAM: MAMMO SCREENING CLINICAL HISTORY: Screening, Z12.31. TECHNIQUE: Bilateral full field digital CC and MLO mammographic images were obtained with 3D tomosyn thesis and utilizing computer aided detection (CAD). COMPARISON: 2014 through 2022 FINDINGS: Masses: None seen. Architectural Distortion: None seen. Microcalcifications: No suspicious pleomorphic-type are seen. Skin Thickening/Nipple Retraction: None. IMPRESSION: 1. No significant interval change with no specific features of malignancy noted. 2. Unless there is more urgent need, annual screening mammography is recommended, as per [place] [employer] guidelines. BI-RADS Category 1-negative Breast Density - Category D - extremely dense Breast Density Category D: The mammogram demonstrates the patient's breast tissue is dense. Dense nadine ast tissue is very common and is not abnormal but dense breast tissue can make it harder to find canc er on a mammogram. Also, dense breast tissue may increase their breast cancer risk. This information about the result of the mammogram report was provided to the patient to raise their awareness. Use th is report when you speak with the patient about their risks for breast cancer, which includes their f amily history. At that time, you may recommend for more screening tests (Ultrasound or MRI) as they m ight be useful based on their risk. A negative radiographic report should not delay biopsy if a dominant or clinically suspicious mass is present. Up to ten percent of cancers are not identified on mammography. A negative report may reinforce clinical impression. Adenosis and dense breasts may obscure an underlying neoplasm. False positive reports average 6 to 10%.
== END 2024-06-20 03:31 ==
LOC: DI 03:11
PROVIDERS: PCP Family Medicine; Visit Provider Family Medicine
DX: R06.09 Other forms of dyspnea (principal); Z12.31 Encounter for screening mammogram for malignant neoplasm of breast; I35.0 Nonrheumatic aortic (valve) stenosis; I34.0 Nonrheumatic mitral (valve) insufficiency
CPT/HCPCS: 77063; 77067; 93306

== ENCOUNTER → 2024-07-18 08:01 | Outpatient (BNVA) | payer MEDICARE, BC, SELFPAY | PROVIDERS: PCP Family Medicine; Referring Provider Family Medicine; Visit Provider Podiatrist | DX: M76.71 Peroneal tendinitis, right leg (principal); G57.91 Unspecified mononeuropathy of right lower limb; M20.41 Other hammer toe(s) (acquired), right foot; M20.42 Other hammer toe(s) (acquired), left foot; M21.611 Bunion of right foot; M21.612 Bunion of left foot; L85.8 Other specified epidermal thickening; R09.89 Other specified symptoms and signs involving the circulatory and respiratory systems; L84 Corns and callosities; R23.8 Other skin changes; E55.9 Vitamin D deficiency, unspecified; R23.4 Changes in skin texture | CPT/HCPCS: 11056; 99214 ==

== ENCOUNTER 2024-08-02 11:47 | Outpatient (REF) | payer MEDICARE, BC, SELFPAY ==
[2024-08-02 15:38] LABS: Hemoglobin A1C 5.6 % (<5.7)
[2024-08-02 16:04] LABS: Anion Gap 8.3 mmol/L (3-11); BUN 13 mg/dL (7-18); CO2 28.7 mmol/L (21.0-32.0); CREATININE 0.7 mg/dL (0.55-1.02); Calcium 9.6 mg/dL (8.5-10.1); Chloride 103 mmol/L (98-107); Glucose 88 mg/dL (74-106); Sodium 140 mmol/L (136-145); Vitamin D 25 Total 20.6 ng/mL (30-100)
== END 2024-08-02 11:48 | disposition home or self-care (01) ==
LOC: NCHCN 11:47
PROVIDERS: PCP Family Medicine; Visit Provider Family Medicine
DX: R73.9 Hyperglycemia, unspecified (principal); M81.0 Age-related osteoporosis without current pathological fracture
CPT/HCPCS: 80048; 82306; 83036

== ENCOUNTER 2024-08-16 01:53 | Outpatient (CLI) | payer MEDICARE, BC, SELFPAY ==
--- NOTE | 2024-08-16 09:46 | DI.RAD_ITS ---
Exam(s) XR CERVICAL SPINE COMP 4-5V EXAM: XR CERVICAL SPINE COMP 4-5V CLINICAL HISTORY: Cervicalgia, M54.2, neck pain. TECHNIQUE: 2D digital imaging was performed. Six images were obtained. AP, odontoid, lateral and anthony ateral oblique images were obtained. COMPARISON: No exams were available for comparison FINDINGS: The odontoid is intact. The lateral masses are well aligned. There is reversal of the normal cervica l lordosis centered at C5. There is anterolisthesis of C3 on C4 and C4 on C5. There is disc space na rrowing at C4-5, C5-C6 and C6-C7. Facet arthropathy is present at multiple levels. No acute fractur e or subluxation is present. There is [id number] neural foraminal narrowing on the right at C3- C4. Multilevel neural foraminal narrowing is seen on the left from C3-C4 through C6-C7. The bones ar e osteopenic. The prevertebral soft tissues are unremarkable. Lung apices are clear. 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 DATA REPOSITORY: RADIATION DOSE DELIVERED:
== END 2024-08-16 02:13 ==
LOC: DI 01:54
PROVIDERS: PCP Family Medicine; Visit Provider Family Medicine
DX: M43.12 Spondylolisthesis, cervical region
CPT/HCPCS: 72050

== ENCOUNTER 2025-01-31 10:56 | Outpatient (REF) | payer MEDICARE, BC, SELFPAY ==
[2025-01-31 18:05] LABS: HCT 37.4 % (36.0-46.0); HGB 12.2 g/dL (11.2-15.7); MCH 30.7 pg (27.0-33.0); MCHC 32.6 % (32.0-36.0); MCV 94 fL (80-95); MPV 12.1 fL (8.0-11.0); Platelet Count 223 10^3/uL (130-400); RBC 3.98 10^6/uL (3.93-5.22); RDW 12.0 % (11.7-14.6); RDW-SD 41.8 fL; WBC 5.28 10^3/uL (4.4-10.8)
[2025-01-31 18:42] LABS: ALT 26 U/L (14-59); AST 24 U/L (15-37); Albumin 3.7 g/dL (3.4-5.0); Alkaline Phosphatase 90 U/L (46-116); Anion Gap 7.0 mmol/L (3-11); BUN 14 mg/dL (7-18); Bilirubin, Total 0.4 mg/dL (0.2-1.0); CO2 28.0 mmol/L (21.0-32.0); Calcium 9.1 mg/dL (8.5-10.1); Chloride 104 mmol/L (98-107); Estimated GFR 93.59 (mL/min/1.73m2); Glucose 105 mg/dL (74-106); Potassium 4.1 mmol/L (3.5-5.1); Sodium 139 mmol/L (136-145); Total Protein 6.8 g/dL (6.4-8.2); Vitamin D 25 Total 29 ng/mL (30-100)
== END 2025-01-31 10:57 | disposition home or self-care (01) ==
LOC: NCHCN 10:56
PROVIDERS: PCP Family Medicine; Visit Provider Family Medicine
DX: E55.9 Vitamin D deficiency, unspecified (principal); R10.10 Upper abdominal pain, unspecified
CPT/HCPCS: 80053; 82306; 85027